=== PATIENT | female | born 1970 | race Caucasian/White ===

== ENCOUNTER → 2023-08-07 10:13 | Outpatient (REF) | payer OTHER, SELFPAY ==
[2023-08-09 15:59] LABS: Quantiferon Mitogen minus NIL >10.00 IU/mL; Quantiferon NIL 0.02 IU/mL; Quantiferon TB Gold Plus Negative (Negative)
[2023-08-13 15:55] LABS: Rubeola (Measles) IgG Positive
== END ==
LOC: OHS 10:13
PROVIDERS: ATTENDING PHYSICIAN Nurse Practitioner Family
DX: Z23 Encounter for immunization (principal)
CPT/HCPCS: 36415; 86480; 86765

== ENCOUNTER → 2023-09-25 08:31 | Outpatient (REF) | payer BC, SELFPAY ==
[2023-09-25 09:15] LABS: % Basophils 0.8 % (0-2); % Eosinophils 2.4 % (0-6); % Lymphocytes 30.2 % (20.5-51.1); % Monocytes 5.5 % (1.7-9.3); % Neutrophils 61.1 % (42.2-75.2); Absolute Eosinophils 0.1 10^3/uL (0-0.7); Absolute Lymphocytes 1.2 10^3/uL (1.2-3.4); Absolute Monocytes 0.2 10^3/uL (0.1-0.6); Absolute Neutrophils 2.3 10^3/uL (1.4-6.5); Hematocrit 35.4 % (37.0-47.0); Hemoglobin 11.5 g/dL (12.0-16.0); Mean Corp Hgb Conc. 32.5 g/dL (33.0-37.0); Mean Corpuscular Hgb 29.3 pg (27.0-31.0); Mean Corpuscular Volume 90.3 fL (81.0-99.0); Nucleated Red Blood Cells % 0 %; Platelet Count 221 10^3/uL (130-400); Red Blood Cell Count 3.92 10^6/uL (4.20-5.40); White Blood Cell Count 3.8 10^3/uL (4.8-10.8)
[2023-09-25 09:40] LABS: ALT (SGPT) 14 U/L (0-35); AST (SGOT) 23 U/L (14-36); Alkaline Phosphatase 73 U/L (38-126); Blood Urea Nitrogen 14 mg/dl (7-17); Calcium 9.5 mg/dl (8.4-10.2); Carbon Dioxide 26 mmol/L (22-30); Chloride 108 mmol/L (98-107); Direct Bilirubin 0.3 mg/dl (0.0-0.4); Glucose 91 mg/dl (70-99); HDL Cholesterol 51 mg/dl; LDL Cholesterol, Calculated 134 mg/dl; Phosphorus 3.5 mg/dl (2.5-4.5); Potassium 4.3 mmol/L (3.5-5.1); Sodium 140 mmol/L (135-145); Total Bilirubin 0.5 mg/dl (0.2-1.3); Total Cholesterol 201 mg/dl (50-199); Total Protein 6.5 g/dl (6.3-8.2); Triglyceride 82 mg/dl (10-149); Very Low Density Lipoprotein 16 mg/dl (0-30); eGFR > 60.00
[2023-09-25 09:59] LABS: TSH Reflex To Free T4 0.25 uIU/ml (0.47-4.68)
[2023-09-25 10:29] LABS: Free T4 1.43 ng/dl (0.78-2.19)
[2023-09-25 13:54] LABS: Glycohemoglobin (HgbA1c) 5.5 % (4.0-5.6)
== END ==
LOC: REG 08:31
PROVIDERS: ATTENDING PHYSICIAN Student in an Organized Health Care Education/Training Program
DX: D50.0 Iron deficiency anemia secondary to blood loss (chronic) (principal); R73.01 Impaired fasting glucose; E78.00 Pure hypercholesterolemia, unspecified; E03.9 Hypothyroidism, unspecified
CPT/HCPCS: 36415; 80053; 80061; 82248; 83036; 84100; 84439; 84443; 85025

== ENCOUNTER 2024-07-06 09:23 | Emergency (ER) | payer SELFPAY ==
[2024-07-06 09:35] VITALS: BP 109/65
[2024-07-06 12:05] VITALS: BP 115/75
[2024-07-06] MEDS: TYLENOL 1000 MG PO (12:06)
[2024-07-06] MEDS: TORADOL 15 MG IM (12:07)
--- NOTE | 2024-07-06 12:38 | ED.GENMED ---
History of Present Illness
General
Chief Complaint: Musculo-Skeletal Complaint
Source: patient
Exam Limitations: none
Time Seen by Provider: 07/06/24 11:05
Nursing documentation reviewed up to this point in time: agreed with
History of Present Illness
History of Present Illness:
54-year-old female presenting to the emergency department today with concerns of left hip pain. She was hit by an elevator door closing a few weeks ago. She had additional discomfort today getting out of bed which prompted her to fall to the
ground hitting her left forehead. Did not lose consciousness otherwise feels well and is not on blood thinners. Does have ongoing left-sided hip pain.
Review of Systems
Review of Systems
Allergies reviewed?: Yes
All Other Systems: ROS reviewed and negative except as documented in HPI and ROS
Phy Exam
Physical Exam
Physical Exam:
GENERAL: Alert , in no apparent distress
EYE: pupils equal and reactive
NECK: Supple, no significant adenopathy.
ENT: o/p clr, mmm.
CARDIAC: Regular rate and rhythm .
LUNGS: Clear breath sounds bilaterally, no acute respiratory distress, no wheezes/rales/rhonchi
ABDOMEN: Soft, without focal tenderness, no r/g, no cvat
NEUROLOGICAL: Alert and oriented, no focal neuro deficits 5 out of 5 upper and lower extremity strength normal sensation when palpating bilaterally normal. Anosmia noted send no pronator drift
SKIN: Warm and dry, skin intact.
MUSCULOSKELETAL: No edema, well perfused.
PSYCH: Normal and appropriate interaction.
Course
Orders/Labs/Results
Orders:
Orders
07/06/24 09:40
Hip, Left 2-3 Views [CR Hip - LT w/wo Pel 2-3 Vw*] Urgent
Comment:
Reason For Exam: pain, injury
Include a pelvis x-ray?: Yes
07/06/24 11:54
Ice Pack-Treatment DIRECTED
Location: L hip
Acetaminophen [Tylenol] 1,000 mg PO NOW STA
Ketorolac [Toradol] 15 mg IM NOW STA
Vital Signs
Initial and Last Documented VS:
Initial Vital Signs
Temp Pulse Resp BP Pulse Ox
98.4 F 83 18 109/65 95
07/06/24 09:35 07/06/24 09:35 07/06/24 09:35 07/06/24 09:35 07/06/24 09:35
Last Documented Vital Signs
Temp Pulse Resp BP Pulse Ox
98.4 F 83 18 109/65 95
07/06/24 09:35 07/06/24 09:35 07/06/24 09:35 07/06/24 09:35 07/06/24 09:35
MDM/Problems Addressed
MDM/Problems Addressed:
54-year-old female presenting to the emergency department today with concerns of ongoing left-sided hip discomfort. Left hip hurt this morning when standing up which found her to fall to the ground hit her left forehead. Not on blood thinners did
not lose consciousness otherwise feels well at this point. Normal neurologic evaluation. [place] head CT negative. No neck pain. X-ray without emergent findings of the hip. Plan for symptomatic treatment and outpatient follow-up otherwise.
Return precautions given.
*Critical Care Note
Total Time (30-74mins, 75-104mins- exclusive of procedures): Not Applicable
ED Attending Note
-
Portions of this chart may have been created with voice recognition software.� Occasional wrong word or��sound alike� substitutions may have occurred due to the inherent limitations of voice recognition software.
Discharge Plan
Departure
Patient Disposition: Home (Routine Discharge)
Date of Disposition: 07/06/24
Time of Disposition: 12:38
Patient with high blood pressure during this ER visit?: No
Condition: Good
Covid-19: Not Applicable
Discharge Problem:
Hip sprain
Instructions: Hip pain in adults
Prescriptions:
New
oxycodone-acetaminophen [Percocet] 5-325 mg tablet
1 tab PO Q8H PRN (Reason: Pain) Qty: 7 0RF
Referrals:
Stanley Carrillo MD [Active] - Follow up in 5-7 days
Kenzie Garcia MD [Family Provider] -
Activity Restrictions/Additional Instructions:
You came to the emergency department today with concerns of hip discomfort as well as a fall today. You had a reassuring assessment here no signs of fracture or emergent head injury. Please take the prescribed medication and return for any
worsening, new or concerning symptoms.
Interventions
Interventions:
*Risk Screen - Suicide Last Done: 07/06/24 09:35
*General Assessment Last Done: 07/06/24 09:35
*Neglect/Abuse Screening Last Done: 07/06/24 09:35
*ED COVID-19 Vaccine History Last Done: 07/06/24 12:13
ED-Musculoskeletal Assessment Last Done: 07/06/24 12:14
Discharge Date and Time
Print Language: ROMANSH
--- NOTE | 2024-07-06 17:43 | CM ---
CM received call from patient stating her prescription is not available at the [facility]. CM requested assistance for script to be sent to [facility] by covering PA.
== END 2024-07-06 13:28 | disposition home or self-care (01) ==
LOC: EMR 09:23
PROVIDERS: EMERGENCY PHYSICIAN Student in an Organized Health Care Education/Training Program; FAMILY PHYSICIAN Student in an Organized Health Care Education/Training Program
DX: S73.102A Unspecified sprain of left hip, initial encounter (principal); W22.8XXA Striking against or struck by other objects, initial encounter; W19.XXXA Unspecified fall, initial encounter
CPT/HCPCS: 99284; 96372; 73502

== ENCOUNTER → 2024-07-16 07:52 | Outpatient (REF) | payer BC, OTHER, SELFPAY | LOC: MRI 3T 07:52 | PROVIDERS: ATTENDING PHYSICIAN Physician Assistant Medical; FAMILY PHYSICIAN Student in an Organized Health Care Education/Training Program | DX: M25.512 Pain in left shoulder (principal); M25.552 Pain in left hip | CPT/HCPCS: 73221 ==

== ENCOUNTER → 2024-07-18 07:41 | Outpatient (REF) | payer BC, OTHER, SELFPAY | LOC: MRI 07:41 | PROVIDERS: ATTENDING PHYSICIAN Physician Assistant Medical; FAMILY PHYSICIAN Student in an Organized Health Care Education/Training Program | DX: M25.552 Pain in left hip (principal) | CPT/HCPCS: 73721 ==